=== PATIENT | female | born 1950 | race Native Hawaiian/Other Pacific Islander ===

== ENCOUNTER 2017-04-12 09:40 | Outpatient (CLI) | payer OTHER ==
[~2017-04-12 09:40] MED LIST: CELEBREX200 MG PO; DIOVAN HC1 PO; DULO60CA2 OR; METF500T PO; NEXIUM40 M1 PO; NEXIUM40 MG PO; PRED5TAB3 PO; SIMV40TA57
== END 2017-04-12 11:00 | disposition home or self-care (01) ==
LOC: MAMMO 09:40
DX: Z12.31 Encounter for screening mammogram for malignant neoplasm of breast (principal); M85.88 Other specified disorders of bone density and structure, other site
CPT/HCPCS: G0202-TC

== ENCOUNTER 2018-06-16 09:52 | Outpatient (CLI) | payer OTHER | END 2018-06-16 20:08 | disposition home or self-care (01) | LOC: MAMMO 09:52 | DX: Z12.31 Encounter for screening mammogram for malignant neoplasm of breast (principal) ==

== ENCOUNTER 2018-08-17 10:11 | Outpatient (CLI) | payer OTHER | END 2018-08-17 19:22 | disposition home or self-care (01) | LOC: LABW 10:11 | DX: R82.90 Unspecified abnormal findings in urine (principal) | CPT/HCPCS: 81000; 87077; 87086; 87088; 87186 ==

== ENCOUNTER 2018-09-13 11:00 | Outpatient (CLI) | payer OTHER | END 2018-09-13 23:42 | disposition home or self-care (01) | LOC: RAD 11:00 | DX: R06.02 Shortness of breath (principal) ==

== ENCOUNTER 2018-12-13 08:26 | Outpatient (CLI) | payer OTHER ==
[2018-12-13 08:51] LABS: PLATELET COUNT 236 K/uL (152-353)
== END 2018-12-13 22:45 | disposition home or self-care (01) ==
LOC: LABW 08:26
PROVIDERS: Psychiatry & Neurology Addiction Medicine
DX: E11.649 Type 2 diabetes mellitus with hypoglycemia without coma (principal); K21.0 Gastro-esophageal reflux disease with esophagitis; N18.3 Chronic kidney disease, stage 3 (moderate); Z79.899 Other long term (current) drug therapy; I12.9 Hypertensive chronic kidney disease with stage 1 through stage 4 chronic kidney disease, or unspecified chronic kidney disease
CPT/HCPCS: 36415; 80053; 80061; 81000; 83036; 84443; 85027

== ENCOUNTER 2020-12-14 14:10 | Outpatient (CLI) | payer OTHER | END 2020-12-14 19:12 | disposition home or self-care (01) | LOC: LAB 14:10 | PROVIDERS: ATTEND Orthopaedic Surgery | DX: M71.062 Abscess of bursa, left knee (principal) | CPT/HCPCS: 87070; 87205 ==